=== PATIENT | female | born 1970 | race Caucasian/White ===

== ENCOUNTER 2019-06-25 21:17 | Emergency (ER) | payer BC ==
--- NOTE | 2019-06-25 21:44 | UC ---
Lower Extremity/Ankle HPI - HPI Summary HPI Summary: Patient is a 49-year-old female here with a right foot injury. Patient rolled her right foot on Saturday night stepping off a ledge. Patient has been treating with ice, rest, elevation, ibuprofen with decrease in the amount of swelling. Patient's pain in her right foot has gotten worse though which is concerning to her. Patient has no other injuries. Patient has no numbness or chilling. medications reviewed - History of Current Complaint Stated Complaint: R FOOT INJ Time Seen by Provider: 06/25/19 21:37 Hx Obtained From: Patient Onset/Duration: Sudden Onset Severity Initially: Mild Severity Currently: Moderate - Allergies/Home Medications Allergies/Adverse Reactions: Allergies Allergy/AdvReac Type Severity Reaction Status Date / Time No Known Allergies Allergy Verified 06/25/19 21:48 Home Medications: Home Medications Ibuprofen TAB* [Advil TAB*] 600 mg PO Q6H PRN 06/25/19 [History Confirmed ] PMH/Surg Hx/FS Hx/Imm Hx Previously Healthy: Yes - Surgical History Surgical History: None - Family History Known Family History: Positive: Non-Contributory - Social History Occupation: Employed Full-time Alcohol Use: Rare Substance Use Type: None Smoking Status (MU): Never Smoked Tobacco Review of Systems All Other Systems Reviewed And Are Negative: Yes Constitutional: Negative: Fever, Chills, Fatigue Skin: Negative: Bruising Eyes: Negative: Blurred Vision, Diplopia ENT: Negative: Dental Pain, Sore Throat Respiratory: Negative: Shortness Of Breath, Cough Physical Exam - Summary Physical Exam Summary: Vital Signs Reviewed: Yes A+Ox3, no distress Eyes: Conjunctiva Clear, PERRL. EOM intact and full ENT: Hearing grossly normal TM x 2 clear, moist, uvula midline, no exudate, no erythema Neck: Positive: Supple Respiratory: Positive: No respiratory distress, No accessory muscle use + CTA throughout no w/r Cardiovascular: RRR nl s1, s2 no m/r CBT <2 sec abd soft + BS nt/nd no guarding, no distension Musculoskeletal Exam: Right foot: Tenderness on the lateral aspect of the dorsal foot with tenderness on the plantar aspect of the medial foot. No deformity or overlying ecchymosis. DP/PT pulse 2+. No sensation changes. Neurological: Positive: Alert, + sensation throughout Psychological: Positive: Normal Response To Family Skin: Positive: no rash, no ecchymosis Lower Extremity Course/Dx - Course Course Of Treatment: Patient is here with a foot sprain. Patient had negative x-ray for fracture. Patient has no other injuries. Patient is given a postoperative shoe here for comfort. - Differential Dx/Diagnosis Differential Diagnosis/HQI/PQRI: Contusion, Fracture (Closed), Sprain, Strain, Tendonitis Provider Diagnosis: Right foot strain Discharge - Sign-Out/Discharge Documenting (check all that apply): Patient Departure All imaging exams completed and their final reports reviewed: No - Discharge Plan Condition: Stable Disposition: HOME Patient Education Materials: Foot Sprain (ED) Referrals: Mak Reis PA [Primary Care Provider] - Additional Instructions: Please continue to ice her foot, use Motrin, elevate her foot at the end of the day. Please use your hard soled shoe as needed As discussed, your radiograph was reviewed by the provider that treated you tonight. It will be read by a radiologist tomorrow morning. If there is a finding other than that discussed with you today, you will receive a call from a care provider. - Billing Disposition and Condition Condition: STABLE Disposition: Home
[2019-06-25 21:55] VITALS: BP 136/85
== END 2019-06-25 22:30 | disposition home or self-care (01) ==
LOC: UCCORT 21:17
DX: S96.911A Strain of unspecified muscle and tendon at ankle and foot level, right foot, initial encounter (principal); X50.0XXA Overexertion from strenuous movement or load, initial encounter; Y93.89 Activity, other specified; Y92.9 Unspecified place or not applicable
CPT/HCPCS: 99212; G0463